=== PATIENT | male | born 1970 | race Caucasian/White ===

== ENCOUNTER 2017-01-28 23:41 | Emergency (ER) | payer OTHER ==
[2017-01-29 00:12] LABS: BASOPHIL % 0.5 % (0-2); PLATELET COUNT 249 x10^3mcL (130-400)
[2017-01-29 00:18] LABS: CALCIUM 8.4 mg/dL (8.5-10.1); CARBON DIOXIDE 30.4 mmol/L (21-32); CHLORIDE SERUM 104 mmol/L (98-107); CREATININE SERUM 1.4 mg/dL (0.7-1.3); GFR1 58 mL/min; GLUCOSE SERUM 106 mg/dL (74-106); POTASSIUM SERUM 3.6 mmol/L (3.5-5.1); SODIUM SERUM 141 mmol/L (136-145)
[2017-01-29 00:23] LABS: ALBUMIN 3.6 g/dL (3.4-5.0); ALKALINE PHOSPHATASE 111 U/L (46-116); ALT/SGPT 30 U/L (16-63); AST/SGOT 25 U/L (15-37); BILIRUBIN TOTAL 0.4 mg/dL (0.20-1.00); MAGNESIUM 1.6 mg/dL (1.8-2.4); TOTAL PROTEIN, SERUM 7.1 g/dL (6.4-8.2)
[2017-01-29 01:08] LABS: AMPHETAMINE QUAL UR POSITIVE (NEG <=1000)
[2017-01-29 02:15] VITALS: BP 138/88
== END 2017-01-29 02:15 | disposition home or self-care (01) ==
LOC: ED 23:41
PROVIDERS: Emergency Medicine
DX: T43.625A Adverse effect of amphetamines, initial encounter (principal); R42 Dizziness and giddiness; E83.42 Hypomagnesemia; M54.2 Cervicalgia; M54.9 Dorsalgia, unspecified; Y92.89 Other specified places as the place of occurrence of the external cause
CPT/HCPCS: 80307; G0480; Q0092

== ENCOUNTER 2017-08-01 21:25 | Inpatient (IN) | payer OTHER ==
[~2017-08-01] VITALS: Ht 170.2 cm; Wt 99.3 kg
[2017-08-01 22:08] LABS: BASOPHIL % 0.3 % (0-2); PLATELET COUNT 265 x10^3mcL (130-400)
[2017-08-01 22:10] LABS: RED CELL DISTRIBUTION WIDTH 14.6 % (11.5-14.5)
[2017-08-01 22:16] LABS: CALCIUM 8.2 mg/dL (8.5-10.1); CARBON DIOXIDE 30.7 mmol/L (21-32); CREATININE SERUM 1.6 mg/dL (0.7-1.3); POTASSIUM SERUM 3.7 mmol/L (3.5-5.1)
[2017-08-01 22:18] LABS: ALBUMIN 3.4 g/dL (3.4-5.0); BILIRUBIN TOTAL 0.4 mg/dL (0.20-1.00); TOTAL PROTEIN, SERUM 6.8 g/dL (6.4-8.2)
[2017-08-02] MEDS ORDERED: ALBUTEROL0.63 MG/3 (02:44)
[2017-08-02 03:30] VITALS: BP 109/65
[2017-08-02 04:54] LABS: CHOLESTEROL/HDL RATIO 3.1; MAGNESIUM 2.1 mg/dL (1.8-2.4); PHOSPHOROUS 3.7 mg/dL (2.5-4.9)
[2017-08-02 04:56] LABS: T3 TOTAL 1.07 ng/mL
[2017-08-02 05:12] LABS: FREE T4 0.88 ng/dL (0.76-1.46); FREE THYROXINE INDEX 2.9 ug/dL (1.4-4.5); T4(THYROXINE) 8.4 ug/dL (4.7-13.3)
[2017-08-02 06:18] LABS: BASOPHIL % 0.6 % (0-2); PLATELET COUNT 218 x10^3mcL (130-400)
[2017-08-02 06:52] LABS: CALCIUM 7.8 mg/dL (8.5-10.1); CARBON DIOXIDE 28.4 mmol/L (21-32); CREATININE SERUM 1.4 mg/dL (0.7-1.3); POTASSIUM SERUM 3.6 mmol/L (3.5-5.1)
[2017-08-02 07:02] VITALS: BP 109/65
[2017-08-02 09:09] VITALS: BP 111/65
[2017-08-02 14:08] VITALS: BP 110/66
[2017-08-02 16:15] LABS: microscopic required? NO
[2017-08-02 16:26] LABS: UA SPECIFIC GRAVITY >=1.030 (1.005-1.035); urine erythrocyte NEGATIVE (NEGATIVE)
[2017-08-02 16:29] VITALS: BP 121/71
[2017-08-02 16:35] LABS: AMPHETAMINE QUAL UR POSITIVE (NEG <=1000)
[2017-08-02 20:09] VITALS: BP 94/59
[2017-08-03 05:46] VITALS: BP 98/53
[2017-08-03 06:36] LABS: BASOPHIL % 0.8 % (0-2); PLATELET COUNT 234 x10^3mcL (130-400); RED CELL DISTRIBUTION WIDTH 14.4 % (11.5-14.5)
[2017-08-03 07:14] LABS: CALCIUM 8.2 mg/dL (8.5-10.1); CARBON DIOXIDE 28.3 mmol/L (21-32); CHLORIDE SERUM 110 mmol/L (98-107); CREATININE SERUM 1.1 mg/dL (0.7-1.3); GFR1 > 60 mL/min; GLUCOSE SERUM 93 mg/dL (74-106); POTASSIUM SERUM 4.4 mmol/L (3.5-5.1); SODIUM SERUM 143 mmol/L (136-145)
[2017-08-03 09:26] VITALS: BP 123/63
[2017-08-03] MEDS ORDERED: SIMETHICONE80 MG CH (09:54)
[2017-08-03 10:38] VITALS: BP 123/63
== END 2017-08-03 13:24 | disposition home or self-care (01) | DRG 207 ==
LOC: ED 21:25 → DU 08-02 02:27
PROVIDERS: Emergency Medicine; Family Medicine; ADMIT Family Medicine Sports Medicine
DX: D18.09 Hemangioma of other sites (principal); N17.0 Acute kidney failure with tubular necrosis; E83.51 Hypocalcemia; F15.10 Other stimulant abuse, uncomplicated; D64.9 Anemia, unspecified; J45.909 Unspecified asthma, uncomplicated; E66.9 Obesity, unspecified; Z68.34 Body mass index [BMI] 34.0-34.9, adult
CPT/HCPCS: 83880; 84439; J1200; J1885; J2270; J7030; Q0092; Q0162; Q9967

== ENCOUNTER 2018-01-30 23:20 | Emergency (ER) | payer OTHER ==
[~2018-01-30] VITALS: Ht 170.2 cm; Wt 96.2 kg
[~2018-01-30 23:20] MED LIST: ALBUTEROL0.63 MG/3; SIMETHICONE80 MG CH
[2018-01-30 23:32] VITALS: Ht 170.2 cm; Wt 96.2 kg
[2018-01-31 00:36] LABS: BASOPHIL % 1.2 % (0-2); PLATELET COUNT 225 x10^3mcL (130-400); RED CELL DISTRIBUTION WIDTH 14.3 % (11.5-14.5)
[2018-01-31 00:48] LABS: CALCIUM 8.6 mg/dL (8.5-10.1); CARBON DIOXIDE 31.2 mmol/L (21-32); CHLORIDE SERUM 104 mmol/L (98-107); CREATININE SERUM 1.4 mg/dL (0.7-1.3); GFR1 58 mL/min; GLUCOSE SERUM 90 mg/dL (74-106); POTASSIUM SERUM 4.5 mmol/L (3.5-5.1); SODIUM SERUM 141 mmol/L (136-145)
[2018-01-31 00:52] LABS: ALBUMIN 3.6 g/dL (3.4-5.0); ALKALINE PHOSPHATASE 87 U/L (46-116); ALT/SGPT 98 U/L (16-63); AST/SGOT 58 U/L (15-37); BILIRUBIN TOTAL 0.8 mg/dL (0.20-1.00); LIPASE 92 IU/L (73-393)
[2018-01-31 02:31] LABS: AMPHETAMINE QUAL UR POSITIVE (NEG <=1000)
[2018-01-31 02:50] VITALS: BP 137/78
== END 2018-01-31 02:50 | disposition home or self-care (01) ==
LOC: ED 23:20
PROVIDERS: Emergency Medicine
DX: R10.11 Right upper quadrant pain (principal)
CPT/HCPCS: G0480; J2270; J2405; J7030